=== PATIENT | female | born 1965 | race Caucasian/White ===

== ENCOUNTER 2021-04-05 09:25 | Outpatient (AMB) | payer MEDICARE, MEDICAID, SELFPAY ==
--- NOTE | 2021-04-05 09:26 | PR.CARETRNRP ---
OP Care Transition CWC RN Coordinator DC F/U Call Post Discharge Follow-up call: First Attempt FU Call Follow up call date: 04/05/21 Scheduled Follow-up with PCP: No (Needs to make appointment. ) DME scheduled or recieved: No Prescribed Medication obtained: Yes Patient compliant with current medication regimen: Yes Follow-up call Summary: s/w son, Som, who acts as her caregiver. Per Som, he picked up all meds and will make appt with Allyssa Estrella. Patient has walker, and is doing well after DC. Advised I will call him back in a few days to touch base on PCP appt. No other needs per caregiver. [facility] Care Bladder Tier Follow-up call Follow up call date: 04/05/21 Follow-up call Summary: s/w son, Som, who acts as her caregiver. Per Som, he picked up all meds and will make appt with Allyssa Estrella. Patient has walker, and is doing well after DC. Advised I will call him back in a few days to touch base on PCP appt. No other needs per caregiver. *CWC Office Visit complete CWC Offive Visit Complete CWC Visit Complete?: Yes
== END 2021-04-05 10:22 | disposition home or self-care (01) ==
LOC: HODCWC 09:25
PROVIDERS: PCP Family Medicine; Referring Provider Family Medicine